=== PATIENT | male | born 1935 | race Caucasian/White ===

== ENCOUNTER → 2016-10-05 | Day surgery (SDC) | payer OTHER ==
[~2016-10-05] VITALS: Ht 172.7 cm; Wt 72.6 kg
[~2016-10-05] MED LIST: AMITRIPTYLINE50 MG PO; CO Q-1050 MG PO; ECOTRIN81 MG PO; GABAPENTIN TAB600 MG PO; GLUCOSAMINE/CHO1 TA2 PO; GLUCOSAMINE500 MG PO; HUMULIN 70/30 KW3 ML SC; HUMULIN 70100 UNIT/1; HYDRODIURIL 2525 MG PO; LEVOTHROID SO0.05 MG PO; LISINOPRIL10 M1 PO; LOVASTATIN10 MG PO; MOXIFLOXACIN H400 M1 PO; NEURONTIN100 MG PO; NEURONTIN300 MG PO; PREDNISONE10 MG PO; SYMBICORT 160/41 PUF INH; TAMSULOSIN HYD0.4 MG PO; VITAMIN B1250 MCG PO; VITAMIN D PO; ZETIA10 MG PO
--- NOTE | 2016-10-05 12:34 | Operative Report ---
Operative/Inv Procedure Report Surgery Date: 10/05/16 Name of Procedure: cystoscopy Pre-Operative Diagnosis: hemturia: urinary incontinence Post-Operative Diagnosis: overaflow incontinence with BPH. Skin decubiti Estimated Blood Loss: scant Surgeon/Warehouser: MITUL ADAMES MD Anesthesia: moderate sedation Drains: 18fr tejada Specimens: ucx Complications: none Operative/Procedure Note Note: The patient was taken to the operative room and placed on the OR table in supine position. Timeout was performed in order to confirm the patient's identity, procedure, anesthesia, antibiotics, as well as any other pertinent information. After adequate anesthesia, and antibiotics, the patient was then placed lithotomy stirrups draped and prepped in the usual surgical fashion. A 22 [place] cystoscope sheath with a 30 angle lens was inserted into the urethra and advanced into the bladder without difficulty. The bladder was noted to have the findings as discussed above. The bladder was then hydrodistended 2 with the irrigation fluid at 40 cm above the symphysis pubis. No evidence of tumor, increased petechiae, nor Hunner's ulceration was noted. Both ureteral orifices had clear reflux in their orthotopic position. No terminal bleed with drainage. Bladder capacity was normal. The bladder was then drained and the cystoscope was removed under direct visualization. The patient tolerated procedure well and was taken to recovery room in satisfactory condition. Discharge Disposition: Same Day Admissions CC: MITUL ADAMES MD
== END ==
LOC: STS 02:38
DX: N40.1 Benign prostatic hyperplasia with lower urinary tract symptoms (principal); N39.490 Overflow incontinence; R31.9 Hematuria, unspecified; E11.40 Type 2 diabetes mellitus with diabetic neuropathy, unspecified; E11.29 Type 2 diabetes mellitus with other diabetic kidney complication; N28.9 Disorder of kidney and ureter, unspecified; Z79.4 Long term (current) use of insulin; I10 Essential (primary) hypertension; E03.9 Hypothyroidism, unspecified
CPT/HCPCS: 36415; 87086; 93005; 93010